=== PATIENT | female | born 1960 | race Caucasian/White ===

== ENCOUNTER → 2020-10-09 | Outpatient (CLI) | payer OTHER ==
[2020-10-09 12:03] LABS: BUN/CREATININE RATIO 25 (0-10)
== END ==
LOC: LAB 10:22
PROVIDERS: Internal Medicine Cardiovascular Disease
DX: I73.9 Peripheral vascular disease, unspecified (principal); E78.5 Hyperlipidemia, unspecified; R53.83 Other fatigue; I07.1 Rheumatic tricuspid insufficiency
CPT/HCPCS: 36415; 80053; 80061

== ENCOUNTER → 2020-10-13 | Outpatient (CLI) | payer OTHER | LOC: CT 12:30 | DX: I73.9 Peripheral vascular disease, unspecified (principal); R91.1 Solitary pulmonary nodule | CPT/HCPCS: 75635; Q9967 ==

== ENCOUNTER → 2021-01-19 | Outpatient (CLI) | payer OTHER ==
[2021-01-19 10:39] LABS: BUN/CREATININE RATIO 24 (0-10)
== END ==
LOC: LAB 09:16
PROVIDERS: Internal Medicine Cardiovascular Disease
DX: E78.5 Hyperlipidemia, unspecified (principal)
CPT/HCPCS: 36415; 80053; 80061

== ENCOUNTER → 2021-04-21 | Outpatient (CLI) | payer OTHER ==
[2021-04-21 11:53] LABS: BUN/CREATININE RATIO 20 (0-10)
== END ==
LOC: LAB 10:11
PROVIDERS: Internal Medicine Cardiovascular Disease
DX: E78.5 Hyperlipidemia, unspecified (principal)
CPT/HCPCS: 36415; 80053; 80061

== ENCOUNTER → 2021-11-04 | Outpatient (CLI) | payer OTHER | LOC: KOH-I 10:21 | DX: R91.1 Solitary pulmonary nodule (principal); R00.2 Palpitations | CPT/HCPCS: 71250 ==